=== PATIENT | male | born 1980 | race Caucasian/White ===

== ENCOUNTER 2017-02-07 21:26 | Observation (INO) ==
[2017-02-07] MEDS ORDERED: Albuterol 2.5 MG/3 ML NEBULIZER IH ONE (21:37)
[2017-02-07] MEDS ORDERED: Ipratropium/Albuterol Neb 3 ML IH ONE (21:37)
[2017-02-07] MEDS ORDERED: methylPREDNISolone 125 MG/2 ML VIAL IVP ONE (21:37)
--- NOTE | 2017-02-07 21:41 | Emergency Department Note ---
Disposition Clinical Impression: Pneumonia Qualifiers: Pneumonia type: due to unspecified organism Laterality: left Lung location: lower lobe of lung Qualified Code(s): J18.1 - Lobar pneumonia, unspecified organism Disposition: Admitted As Inpatient Condition: Good Referrals: NONE,PCP [Primary Care Provider] - Forms: ED Satisfaction Letter Time of Disposition: 23:00 SOB HPI - General Chief Complaint: ED Shortness of Breath/Dyspnea Stated Complaint: sob and n/v Time Seen by Provider: 02/07/17 21:35 Source: patient Mode of arrival: ambulatory Limitations: no limitations Nursing Notes Reviewed: Yes Vital Signs Reviewed: Yes - History of Present Illness 36-year-old white male who presents with a 4 week history of a nonproductive cough and difficulty breathing. He has noted wheezing. He has had some intermittent nasal congestion. No documented fever. He has not sought medical care up until this point in time. He states yesterday he did vomit twice. He thought the vomitus looked coffee ground in appearance. His bowel movements and been normal, no melena or blood in his stool. He denies any abdominal pain. He states he gets pneumonia every 2 or 3 years. No documented fever. Pt Subjective Complaint: shortness of breath, cough Onset (ago): week(s) Context: recent illness (4) Severity: moderate Consistency/Duration: intermittent Improves with: nothing Worsens with: coughing Known history of: recurrent pneumonia Associated symptoms: Reports: nausea/vomiting (Vomited twice yesterday, coffee ground in appearance) Treatment prior to arrival: bronchodilator (Albuterol nebulizer in route) Cough present: Yes Cough Description: Involuntary Cough Frequency: Intermittent Sputum production: No Sputum Amount: None - Related Data Home oxygen amount: none Home Medications Medication Instructions Recorded Confirmed Lisinopril/Hydrochlorothiazide 1 tab PO DAILY 12/06/14 02/07/17 [Zestoretic 20-25 mg Tablet] Atenolol [Tenormin] 50 mg PO DAILY 09/20/16 02/07/17 Oxycodone HCl/Acetaminophen 1 each PO Q6H 02/07/17 02/07/17 [Percocet 7.5-325 mg Tablet] Previous Rx's Medication Instructions Recorded DULoxetine [Cymbalta] 60 mg PO DAILY #60 capsule. 09/23/16 Divalproex (24 HR) [Depakote ER 500 mg PO HS #30 tab.er.24h 09/23/16 (24 HR)] Allergies Allergy/AdvReac Type Severity Reaction Status Date / Time Iodinated Contrast- Oral and Allergy Anaphylaxis Verified 11/06/16 17:18 IV Dye [Iodinated Contrast Media - IV Dye] tramadol [From Ultram] Allergy Seizure Verified 11/06/16 17:18 All systems ED: reviewed and negative except as stated. Constitutional: Denies: fever, chills Eyes: Denies: eye discharge ENT ED: Denies: ear pain, throat pain Cardiovascular: Reports: chest pain (Sharp chest discomfort with coughing) Respiratory: Reports: cough, dyspnea, wheezes. Denies: sputum production Gastrointestinal: Reports: nausea, vomiting (Vomited twice yesterday, coffee- ground in appearance). Denies: abdominal pain, diarrhea, hematemesis, melena Genitourinary: Denies: urgency, dysuria, frequency Musculoskeletal: Denies: back pain Integumentary: Denies: rash Past Medical History - Past Medical History Medical history: Reports: hypertension, kidney stones Surgical history: Reports: herniorrhaphy Psychiatric history: Reports: depression, previous psychiatric hospitalization - Social History Smoking Status: Current every day smoker Smokeless Tobacco Status: Yes Alcohol use: Reports: none Drug use: Reports: none, prescription drug abuse Physical Exam - General Limitations: no limitations General appearance: alert, in distress (Mildly dyspneic) - Head Head exam: atraumatic, normocephalic - Eye Eye exam: Present: PERRL, EOMI. Absent: scleral icterus, conjunctival injection - ENT ENT exam: normal oropharynx, mucous membranes moist, TM's normal bilaterally - Neck Neck exam: Present: normal inspection, full ROM, trachea midline. Absent: tenderness, lymphadenopathy - Respiratory Respiratory exam: Present: respiratory distress (Mildly dyspneic), wheezes ( Moderate bilateral expiratory diffuse). Absent: stridor, accessory muscle use, prolonged expiratory phase - Cardiovascular Cardiovascular exam: Present: regular rate, normal rhythm, normal heart sounds - Abdominal Exam Abdominal exam: Present: soft, Non-Tender, normal bowel sounds. Absent: organomegaly, mass - Rectal Exam Rectal exam: Present: normal rectal tone, fecal impaction, other (Brown stool, no obvious blood.). Absent: black stool, bloody stool - Extremities Exam Extremities exam: Present: normal inspection, full ROM, normal capillary refill - Neurological Exam Neurological exam: Present: alert, oriented X3 - Psychiatric Psychiatric exam: Present: normal affect, normal mood - Skin Skin exam: Present: warm, dry, intact, normal color Course - Reevaluation(s) Reevaluation #1: Improved clinically. Moving air better. Discussed admission with the patient. Discussed the case with Dr. Mckeon. He is accepted the patient for admission. Time: 22:30 Vital Signs Temperature 98.1 F 02/07/17 21:30 Pulse Rate 107 02/07/17 21:30 Respiratory Rate 20 02/07/17 21:30 Blood Pressure 164/106 02/07/17 21:30 O2 Sat by Pulse Oximetry 93 02/07/17 21:30 Temperature 98.1 F 02/07/17 21:42 Pulse Rate 77 02/07/17 22:49 Respiratory Rate 20 02/07/17 22:49 Blood Pressure 152/96 02/07/17 22:49 O2 Sat by Pulse Oximetry 94 02/07/17 22:49 Oxygen Delivery Oxygen Delivery Nasal Cannula Shortness of Breath/Dyspnea - [facility] Narrative Medical decision making narrative: Differential includes but is not limited to viral URI, bronchitis with bronchospasm, pneumonia, influenza, sinusitis Radiographically as some infiltrate in his left base consistent with pneumonia. He has significant bronchospasm with low O2 saturation around 90% on room air. He is requiring supplemental oxygen. He is improved with bronchodilators and steroids. Blood cultures were obtained and he was given IV Rocephin and azithromycin. He will be admitted to an observation bed for further treatment. - Medical Records Medical records reviewed: Yes I reviewed the patient's medical records. - Lab Data Lab results reviewed: Yes I reviewed the patient's lab results. Result diagrams: 02/07/17 21:58 02/07/17 21:58 Lab Results 02/07/17 02/07/17 02/07/17 Range/Units 21:40 21:58 21:58 WBC 8.5 (4.3-11.1) K/mcL RBC 4.41 (4.19-5.50) M/mcL Hgb 14.2 (12.9-16.9) g/dL Hct 40.0 (37.5-50.1) % MCV 90.7 (83.0-100.0) fL MCH 32.2 (28.0-33.3) pg MCHC 35.5 (31.6-35.5) g/dL RDW 11.9 (11.5-14.5) % Plt Count 164 (140-400) K/mcL MPV 12.2 (9.4-12.4) fL Immature Gran % 0.2 (0-4) % Seg Neutrophils % 67.5 % Lymphocytes % 21.8 % Monocytes % 9.9 % Eosinophils % 0.0 % Basophils % 0.6 % Neutrophils # 5.7 (1.6-8.9) K/mcL Lymphocytes # 1.9 (0.6-4.6) K/mcL Monocytes # 0.8 (0.0-1.3) K/mcL Eosinophils # 0.0 (0.0-0.6) K/mcL Basophils # 0.1 (0.0-0.2) K/mcL Sodium 144 (136-145) mEq/L Potassium 3.3 L (3.5-4.5) mEq/L Chloride 107 (98-109) mEq/L Carbon Dioxide 26 (19-29) mEq/L BUN 11 (8-26) mg/dL Creatinine 0.66 L (0.72-1.25) mg/dL Est GFR ( Amer) > 60 (> 60) Est GFR (Non-Af Amer) > 60 (> 60) BUN/Creatinine Ratio 17 (6-26) Glucose 94 (70-99) mg/dL Calculated Osmolality 297 (280-300) Lactic Acid (0.5-2.2) mmol/L Calcium 9.6 (8.6-10.8) mg/dL Total Bilirubin 0.2 (0.2-1.2) mg/dL AST 20 (5-34) Units/L ALT 20 (0-55) Units/L Alkaline Phosphatase 101 (38-126) Units/L Serum Total Protein 6.9 (6.0-8.3) g/dL Albumin 3.4 L (3.5-5.0) g/dL Globulin 3.5 (2.4-3.5) g/dL Albumin/Globulin Ratio 1.0 L (1.1-2.2) Stool Occult Blood Negative (Negative) 02/07/17 Range/Units 21:58 WBC (4.3-11.1) K/mcL RBC (4.19-5.50) M/mcL Hgb (12.9-16.9) g/dL Hct (37.5-50.1) % MCV (83.0-100.0) fL MCH (28.0-33.3) pg MCHC (31.6-35.5) g/dL RDW (11.5-14.5) % Plt Count (140-400) K/mcL MPV (9.4-12.4) fL Immature Gran % (0-4) % Seg Neutrophils % % Lymphocytes % % Monocytes % % Eosinophils % % Basophils % % Neutrophils # (1.6-8.9) K/mcL Lymphocytes # (0.6-4.6) K/mcL Monocytes # (0.0-1.3) K/mcL Eosinophils # (0.0-0.6) K/mcL Basophils # (0.0-0.2) K/mcL Sodium (136-145) mEq/L Potassium (3.5-4.5) mEq/L Chloride (98-109) mEq/L Carbon Dioxide (19-29) mEq/L BUN (8-26) mg/dL Creatinine (0.72-1.25) mg/dL Est GFR ( Amer) (> 60) Est GFR (Non-Af Amer) (> 60) BUN/Creatinine Ratio (6-26) Glucose (70-99) mg/dL Calculated Osmolality (280-300) Lactic Acid 1.1 (0.5-2.2) mmol/L Calcium (8.6-10.8) mg/dL Total Bilirubin (0.2-1.2) mg/dL AST (5-34) Units/L ALT (0-55) Units/L Alkaline Phosphatase (38-126) Units/L Serum Total Protein (6.0-8.3) g/dL Albumin (3.5-5.0) g/dL Globulin (2.4-3.5) g/dL Albumin/Globulin Ratio (1.1-2.2) Stool Occult Blood (Negative) - Radiology Data Radiology results reviewed: Yes I reviewed the patient's radiology results. Impressions Chest X-Ray 02/07/17 21:37 IMPRESSION: Suspected left lower lobe airspace disease, atelectasis and/or pneumonia. D/ / Jamila Concepcion Cha, MD / Jamila Concepcion Cha, MD Interpreting Provider: Jamila Concepcion Cha, MD
[2017-02-07 22:01] LABS: Basophils # 0.1 K/mcL (0.0-0.2); Basophils % 0.6 %; Hemoglobin 14.2 g/dL (12.9-16.9); Immature Granulocytes % 0.2 % (0-4); Lymphocytes # 1.9 K/mcL (0.6-4.6); Lymphocytes % 21.8 %; Mean Corpuscular HGB Conc 35.5 g/dL (31.6-35.5); Mean Corpuscular Hemoglobin 32.2 pg (28.0-33.3); Mean Corpuscular Volume 90.7 fL (83.0-100.0); Mean Platelet Volume 12.2 fL (9.4-12.4); Monocytes # 0.8 K/mcL (0.0-1.3); Monocytes % 9.9 %; Neutrophils # 5.7 K/mcL (1.6-8.9); Platelet Count 164 K/mcL (140-400); Red Blood Count 4.41 M/mcL (4.19-5.50); Red Cell Distribution Width 11.9 % (11.5-14.5); Segmented Neutrophils % 67.5 %
[2017-02-07] MEDS ORDERED: Azithromycin 500 MG in D5% in Water 250 ML IVPB ONE (22:16)
[2017-02-07] MEDS ORDERED: cefTRIAXone 1,000 MG in Water for inj. (sterile) 10 ML IVP ONE (22:16)
[2017-02-07 22:20] LABS: Alanine Aminotransferase 20 Units/L (0-55); Albumin 3.4 g/dL (3.5-5.0); Alkaline Phosphatase 101 Units/L (38-126); Aspartate Amino Transferase 20 Units/L (5-34); BUN/Creatinine Ratio 17 (6-26); Bilirubin,Total 0.2 mg/dL (0.2-1.2); Blood Urea Nitrogen 11 mg/dL (8-26); Calcium 9.6 mg/dL (8.6-10.8); Carbon Dioxide 26 mEq/L (19-29); Chloride 107 mEq/L (98-109); Globulin 3.5 g/dL (2.4-3.5); Glucose 94 mg/dL (70-99); Osmolality,Calculated 297 (280-300); Potassium 3.3 mEq/L (3.5-4.5); Sodium 144 mEq/L (136-145); Total Protein 6.9 g/dL (6.0-8.3); eGFR For African Americans > 60 (> 60); eGFR For Non-African Americans > 60 (> 60)
[2017-02-07] MEDS ORDERED: Divalproex (24 HR) 500 MG TABLET PO STA (23:04)
[2017-02-07] MEDS ORDERED: *HR* OxyCODONE/APAP 7.5/325 TABLET PO STA (23:04)
[2017-02-07] MEDS ORDERED: Naloxone 0.4 MG/ML INJ IVP PRN (23:46)
[2017-02-08] MEDS: *HR* OxyCODONE/APAP 7.5/325 TABLET PO SCH ×5 (00:06→23:55)
[2017-02-08] MEDS: 0.9 % Sodium Chloride 1,000 ML IVC SCH ×2 (00:17→08:13)
[2017-02-08] MEDS: Albuterol 2.5 MG/3 ML NEBULIZER IH SCH ×6 (01:25→20:28)
[2017-02-08] MEDS: *HR* Enoxaparin 40 MG/0.4 ML SYRINGE SQ SCH (06:24)
[2017-02-08] MEDS ORDERED: MethylPREDNISolone 40 MG/ML VIAL IVP SCH (09:00)
--- NOTE | 2017-02-08 14:33 | Internal Med History&Physical ---
Date of Encounter: 02/08/17 Time of Encounter: 14:00 Assessment and Plan (1) Pneumonia Current visit: Yes Status: Acute He has been started on Rocephin and Zithromax through emergency room. I will add lactobacillus. Qualifiers: Pneumonia type: due to unspecified organism Laterality: left Lung location: lower lobe of lung Qualified Code(s): J18.1 - Lobar pneumonia, unspecified organism (2) Essential hypertension Current visit: No Status: Chronic We will continue Zestoretic and atenolol. Internal Medicine - H&P: HPI Chief complaint: Cough and dyspnea Admitted From: Home Plans for Post Hospital Care: Home History of present illness: Mr. Benson is a 36 year old male who came to the emergency room stating he had 4 week history of cough with minimal production of clear sputum. He had worsening dyspnea onset 2 days earlier. He had no significant chest pain on exertion. He was evaluated in emergency room and felt to have left lower lobe pneumonia. He was admitted to [facility] floor for ongoing care needs. He states his breathing has improved but he does not feel back to his baseline. His respiratory history is significant for having smoked since age 25. He has not had PFTs and does not wear home oxygen and has not been tested for sleep apnea. Past Med Surg Social Fam HX - Past Medical History Medical history: hypertension, kidney stones Psychiatric history: depression, previous psychiatric hospitalization - Past Surgical History Surgical History: herniorrhaphy - Social History Smoking Status: Current every day smoker Smokeless Tobacco Status: Yes Alcohol use: none Drug use: none, prescription drug abuse - Family History Mother Adopted: No Family Member Ethnicity: Non- Living Status: Hx Family Cardiac Disorders: Yes (her parents of heart attacks) Hx Family Respiratory Disorders: Yes (mother had COPD and sleep apnea) Hx Family Cancer: No Hx Family GI Disorders: No Hx Family Endocrine Disorder: Yes (mother had Diabetes) Hx Family Neuromuscular Disorders: No Hx Family Neurologic Disorders: No Hx Family HEENT Disorders: No Hx Family Autoimmune Disorders: No Internal Medicine - H&P: Meds Lisinopril/Hydrochlorothiazide [Zestoretic 20-25 mg Tablet] 1 tab PO DAILY 12/06 [History] Atenolol [Tenormin] 50 mg PO DAILY 09/20/16 [History] DULoxetine [Cymbalta] 60 mg PO DAILY #60 capsule. 09/23/16 [Rx] Divalproex (24 HR) [Depakote ER (24 HR)] 500 mg PO HS #30 tab.er.24h 09/23/16 [ Rx] Oxycodone HCl/Acetaminophen [Percocet 7.5-325 mg Tablet] 1 each PO Q6H 02/07/17 [History] 3 Allergy/AdvReac Type Severity Reaction Status Date / Time Iodinated Contrast- Oral and Allergy Anaphylaxis Verified 11/06/16 17:18 IV Dye [Iodinated Contrast Media - IV Dye] tramadol [From Ultram] Allergy Seizure Verified 11/06/16 17:18 All Systems PM: A 10-system review of systems was performed and is negative for pertinent findings except as documented above in the HPI. Review of systems: Gen.: His weight has been stable at approximately 136 kg since the November 2013 [facility] hospitalization. Cardiovascular: He has history of hypertension but no known TX heart failure angina DVT or pulmonary embolus. He claims he had EST approximately 2003 which was negative. Respiratory: As per history of present illness GI: He denies disorders of his liver gallbladder or exocrine pancreas : No history of hematuria or dysuria. He has had multiple kidney stones in the past most recent one approximately 4 months ago. Neurologic: He had a seizure once when he used tramadol. He denies large distribution strokes. Endocrine: He has history of hyperlipidemia but no known diabetes or thyroid disease Hematology/oncology: Denies blood disorders cancers or anemia Psychiatric: He has anxiety and depression Musk skeletal: He has history of gout. He has L4-5 bulging disc. - Constitutional Vitals: Temp Pulse Resp BP Pulse Ox 98 F 73 16 162/99 93 02/08/17 10:20 02/08/17 10:20 02/08/17 12:30 02/08/17 10:20 02/08/17 12:30 Exam: Gen.: He is a well-developed well-nourished male lying in bed who appears in minimal respiratory distress at present time HEENT: Head is atraumatic and normocephalic. Eyes: EOMI. There is no scleral icterus. Mouth: Mucosa is moist. Neck: Supple and nontender. There is no thyromegaly or adenopathy noted. Heart: Regular without murmurs gallops or ectopics Lungs: No wheezes egophony or crackles are heard. Abdomen: Soft and nontender. No masses or guarding noted. Extremities: There is no cyanosis edema or clubbing noted. Dorsalis pedis and posterior tibial pulses are trace palpable bilaterally. Neurologic: Mental status: He is talkative and a good historian. Cranial nerves : Smile is symmetric. Forehead wrinkles bilaterally. Tongue protrudes midline. EOMI. Motor: There is no pronator drift. Cerebellar: Finger to nose is intact bilaterally. Skin: Warm and dry Internal Med - H&P Results - Labs CBC & Chem 7: 02/07/17 21:58 02/07/17 21:58
[2017-02-08] MEDS: Budesonide/Formoterol 160/4.5 MDI IH SCH ×2 (14:48→20:28)
[2017-02-08] MEDS ORDERED: Azithromycin 500 MG in D5% in Water 250 ML IVPB SCH (18:00)
[2017-02-08] MEDS ORDERED: Divalproex (24 HR) 500 MG TABLET PO SCH (21:00)
[2017-02-08] MEDS: Lactobacillus 1 EACH CAP.SPRINK PO SCH (21:08)
[2017-02-09] MEDS: Albuterol 2.5 MG/3 ML NEBULIZER IH SCH ×4 (00:20→12:55)
[2017-02-09] MEDS: *HR* OxyCODONE/APAP 7.5/325 TABLET PO SCH ×2 (05:54→11:53)
[2017-02-09] MEDS: *HR* Enoxaparin 40 MG/0.4 ML SYRINGE SQ SCH (05:55)
[2017-02-09 06:30] LABS: BUN/Creatinine Ratio 24 (6-26); Blood Urea Nitrogen 17 mg/dL (8-26); Calcium 9.3 mg/dL (8.6-10.8); Carbon Dioxide 25 mEq/L (19-29); Chloride 108 mEq/L (98-109); Glucose 124 mg/dL (70-99); Osmolality,Calculated 301 (280-300); Potassium 3.6 mEq/L (3.5-4.5); Sodium 144 mEq/L (136-145); eGFR For African Americans > 60 (> 60); eGFR For Non-African Americans > 60 (> 60)
[2017-02-09] MEDS: Budesonide/Formoterol 160/4.5 MDI IH SCH (08:18)
[2017-02-09] MEDS: Lactobacillus 1 EACH CAP.SPRINK PO SCH (09:04)
[2017-02-09 11:23] VITALS: BP 128/62
--- NOTE | 2017-02-09 12:21 | Discharge Summary ---
Date of Encounter: 02/09/17 Time of Encounter: 12:10 - Discharge Diagnosis (1) Pneumonia Priority: Primary Status: Acute Qualifiers: Pneumonia type: due to unspecified organism Laterality: left Lung location: lower lobe of lung Qualified Code(s): J18.1 - Lobar pneumonia, unspecified organism (2) Essential hypertension Priority: Secondary Status: Chronic - Discharge Medications Prescriptions: Cefuroxime PO [Ceftin] 500 mg PO Q12HR #6 tablet Azithromycin [Zithromax] 250 mg PO DAILY #3 tablet Lactobacillus [Culturelle] 1 each PO BID #6 cap.sprink Home Medications: Lisinopril/Hydrochlorothiazide [Zestoretic 20-25 mg Tablet] 1 tab PO DAILY 12/06 [History] Atenolol [Tenormin] 50 mg PO DAILY 09/20/16 [History] DULoxetine [Cymbalta] 60 mg PO DAILY #60 capsule.dr 09/23/16 [Rx] Divalproex (24 HR) [Depakote ER (24 HR)] 500 mg PO HS #30 tab.er.24h 09/23/16 [ Rx] Oxycodone HCl/Acetaminophen [Percocet 7.5-325 mg Tablet] 1 each PO Q6H 02/07/17 [History] Azithromycin [Zithromax] 250 mg PO DAILY #3 tablet 02/09/17 [Rx] Cefuroxime PO [Ceftin] 500 mg PO Q12HR #6 tablet 02/09/17 [Rx] Lactobacillus [Culturelle] 1 each PO BID #6 cap.sprink 02/09/17 [Rx] Allergies/Adverse Reactions: 3 Allergy/AdvReac Type Severity Reaction Status Date / Time Iodinated Contrast- Oral and Allergy Anaphylaxis Verified 11/06/16 17:18 IV Dye [Iodinated Contrast Media - IV Dye] tramadol [From Ultram] Allergy Seizure Verified 11/06/16 17:18 Date of admission: 02/07/17 23:35 Primary care physician: Jeremy Galicia CNP - Patient Status Disposition: Home, Self-Care Condition: Good Functional capacity at discharge: independent ambulation Overall status at discharge: patient is progressing back to baseline - Discharge Instructions Follow Up With: Jeremy Galicia CNP [Advanced Practice Nurse] - 1 week - Diet and Activity Activity: resume usual activities as tolerated Diet: advance to your usual diet Hospital course: Mr. Benson is a 36 year old male who came to the emergency room stating he had 4 week history of cough with minimal production of clear sputum. He had worsening dyspnea onset 2 days earlier. He had no significant chest pain on exertion. He was evaluated in emergency room and felt to have left lower lobe pneumonia. He was admitted to [facility] for ongoing care needs. Initial orders were written by the emergency room physician. I saw him on February 08 and performed the history and physical. He was started on Rocephin and Zithromax with lactobacillus. He had significant clinical improvement and felt stable for discharge by the following day. He will follow with PCP Jeremy Galicia CNP within 1 week. Supplemental potassium was given and hypokalemia resolved. Bn Peptide returned slightly elevated at 264 on the day of discharge. His PCP can monitor this and do further workup as needed. - Time Spent with Patient Total time spent providing and/or coordinating discharge services: - Constitutional Vitals: Temp Pulse Resp BP Pulse Ox 98.6 F 84 17 128/62 99 02/09/17 11:23 02/09/17 11:23 02/09/17 11:23 02/09/17 11:23 02/09/17 11:23
== END 2017-02-09 12:48 | disposition home or self-care (01) ==
LOC: EMEROOPIK 21:26 → INPPIK 21:26
PROVIDERS: ADMIT Internal Medicine; ATTEND Internal Medicine